=== PATIENT | female | born 1970 | race African-American/Black ===

== ENCOUNTER 2017-01-21 01:58 | Emergency (ER) | payer OTHER, MEDICAID ==
[2017-01-21 02:11] VITALS: BMI 33.7
--- NOTE | 2017-01-21 02:33 | DR.GENAD ---
HPI - PCP Primary Care Physician: Paulo - HPI Comment HPI Comment: Pt c/o dizziness and just doesn't feel right. Patient has not taken her BP meds or any meds for that matter in 2 weeks. - Complaint/Symptoms Chief Complaint Doctors Comments: "Dizziness" Chief Complaint:: "I just feel like something is wrong. I feel really dizzy and just feel disoriented. It may be my Potassium because I ran out of my medication now for about a week now. I can't even lay down because my head spins." - Nurses notes reviewed Nurses Notes Review: Yes - Source History Provided: Patient - Mode of Arrival Mode of Arrival: Ambulatory - Timing Onset of Chief Complaint: 01/14/17 Came on: Gradually - Duration Duration: Since Onset - Severity Severity: Moderate PMH - PMH Past Medical History: Yes Past Medical History: Anxiety, Depression, Hypertension, Hypothyroidism Past Surgical History: Yes Surgical History: Hysterectomy, Ortho Surgery - Family History History of Family Medical Conditions: Yes Family Medical History: Diabetes Mellitus, Hypertension - Social History Does patient currently use any type of tobacco product: No Have you used tobacco products in the last 12 months: No Type of Tobacco Use: None Does any household member use tobacco: No Alcohol Use: None Do you use any recreational Drugs:: No Lives With: Family Lives Where: Home - infectious screening In the last 2 months have you had wt loss of >10#?: NO Have you had fever, night sweats or hemotysis?: No Have you traveled outside the country in the last 6 months?: No Isolation: Standard ROS - Review of Systems Constitutional: No Symptoms Reported Eyes: No Symptoms Reported ENTM: No Symptoms Reported Respiratoy: No Symptoms Reported Cardiovascular: No Symptoms Reported Gastrointestinal/Abdominal: No Symptoms Reported, Abdominal Pain Neurological: Anxiety, Dizziness Musculoskeletal: No Symptoms Reported Integumentary: No Symptoms Reported Hematologic/Lymphatic: No Symptoms Reported Endocrine: No Symptoms Reported Psychiatric: See HPI, Anxiety All Other Systems: Reviewed and Negative PE - Vital Signs Vitals: Temperature 97.6 F Pulse Rate [Standing] 62 Pulse Rate [Sitting] 82 Pulse Rate [Lying] 59 Pulse Rate 62 Respiratory Rate 18 Blood Pressure [Right Arm] 162/86 Blood Pressure [Standing] 152/91 Blood Pressure [Sitting] 144/89 Blood Pressure [Lying] 145/82 Blood Pressure 133/80 O2 Sat by Pulse Oximetry 99 - General Limitations: No Limitations General Appearance: Alert, In No Apparent Distress - Head Head Exam: Normal Inspection - ENT ENT Exam: Normal Exam, Normal Oropharynx, Normal External Ear Exam, Mucous Membranes Moist External Ear Exam: Normal External Inspection TM/Canal Exam: Bilateral Normal Nose Exam: Normal Nose Exam Mouth Exam: Normal Inspection Throat Exam: Normal Inspection - Neck Neck Exam: Normal Inspection, Full ROM, Trachea Midline - Chest Chest Inspection: Normal Inspection - Respiratory Respiratory Exam: Normal Lung Sounds Bilat Respiratory Exam: Bilateral Clear to Auscultation - Cardiovascular Cardiovascular Exam: Regular Rate, Normal Rhythm, Normal Heart Sounds - Abdominal Exam Abdominal Exam: Normal Inspection, Normal Bowel Sounds, Soft - Extremities Extremities Exam: Normal Inspection - Back Back Exam: Normal Inspection - Neurologic Neurological Exam: Alert, Oriented X3, CN II-XII Intact - Psychiatric Psychiatric Exam: Anxious - Skin Skin Exam: Warm, Dry, Intact, Normal Color MDM - Differential Diagnosis Differential Diagnosis: panic attack, anxiety attack, vertigo, sinusitis ROR - Labs Reviewed Result Diagrams: 01/21/17 02:37 01/21/17 02:37 Laboratory: WBC 8.3 X10^3/uL (3.6-10.0) 01/21/17 02:37 RBC 4.55 X10^6/uL (3.5-5.4) 01/21/17 02:37 Hgb 12.8 g/dL (12.0-16.0) 01/21/17 02:37 Hct 38.1 % (36.0-47.0) 01/21/17 02:37 MCV 83.8 fL (80.0-100.0) 01/21/17 02:37 MCH 28.1 pg (27.0-34.0) 01/21/17 02:37 MCHC 33.5 g/dL (33.0-35.0) 01/21/17 02:37 RDW 13.1 % (11.6-16.5) 01/21/17 02:37 Plt Count 378 X10^3/uL (150.0-450.0) 01/21/17 02:37 MPV 7.4 fL (7.4-11.0) 01/21/17 02:37 Neut % 50.0 % (42.0-75.0) 01/21/17 02:37 Lymph % 43.5 % (21.0-51.0) 01/21/17 02:37 [place] % 5.6 % (0.0-13.0) 01/21/17 02:37 Eos % 0.3 % (0.9-2.9) L 01/21/17 02:37 Baso % 0.6 % (0.2-1.0) 01/21/17 02:37 Neut # 4.1 x10^3/uL (2.2-4.8) 01/21/17 02:37 Lymph # 3.6 X10^3/uL (1.3-2.9) H 01/21/17 02:37 [place] # 0.5 x10^3/uL (0.3-0.8) 01/21/17 02:37 Eos # 0.0 x10^3/uL (0.0-0.2) 01/21/17 02:37 Baso # 0.0 X10^3/uL (0.0-0.1) 01/21/17 02:37 Absolute Nucleated RBC 0.0 /100WBC 01/21/17 02:37 Sodium 143 mmol/L (136-145) 01/21/17 02:37 Corrected Sodium TNP 01/21/17 02:37 Potassium 3.3 mmol/L (3.5-5.1) L 01/21/17 02:37 Chloride 106 mmol/L (98-107) 01/21/17 02:37 Carbon Dioxide 30.4 mmol/L (21-32) 01/21/17 02:37 BUN 12 mg/dL (7-18) 01/21/17 02:37 Creatinine 0.98 mg/dL (0.55-1.02) 01/21/17 02:37 Est GFR (MDRD) Af Amer > 60 (>60) 01/21/17 02:37 Est GFR (MDRD) Non-Af > 60 (>60) 01/21/17 02:37 Glucose 103 mg/dL (65-99) H 01/21/17 02:37 Calcium 9.1 mg/dL (8.5-10.1) 01/21/17 02:37 Corrected Calcium TNP 01/21/17 02:37 Total Bilirubin 0.60 mg/dL (0.2-1.0) 01/21/17 02:37 AST 18 Units/L (15-37) 01/21/17 02:37 ALT 23 Units/L (12-78) 01/21/17 02:37 Alkaline Phosphatase 98 Units/L (46-116) 01/21/17 02:37 Total Protein 8.1 g/dL (6.4-8.2) 01/21/17 02:37 Albumin 4.1 g/dL (3.4-5.0) 01/21/17 02:37 Globulin 4.0 g/dL (2.5-4.5) 01/21/17 02:37 Albumin/Globulin Ratio 1.0 Ratio (1.1-2.1) L 01/21/17 02:37 Specimen Type Clean catch urine 01/21/17 02:28 Urine Color Yellow (YELLOW) 01/21/17 02:28 Urine Appearance Hazy (CLEAR) 01/21/17 02:28 Urine pH 6.5 (5.0 - 8.0) 01/21/17 02:28 Ur Specific [place] 1.010 (1.000-1.030) 01/21/17 02:28 Urine Protein 2+ (NEGATIVE) 01/21/17 02:28 Urine Glucose (UA) Negative (NEGATIVE) 01/21/17 02:28 Urine Ketones Negative (NEGATIVE) 01/21/17 02:28 Urine Occult Blood 2+ (NEGATIVE) 01/21/17 02:28 Urine Nitrite Negative (NEGATIVE) 01/21/17 02:28 Urine Bilirubin Negative (NEGATIVE) 01/21/17 02:28 Urine Urobilinogen 1+ (NORMAL) 01/21/17 02:28 Ur Leukocyte Esterase 3+ (NEGATIVE) 01/21/17 02:28 Urine RBC 5-10 /HPF (NEGATIVE) 01/21/17 02:28 Urine WBC 8-12 /HPF (NEGATIVE) 01/21/17 02:28 Ur Squamous Epith Cells Moderate /HPF (NEGATIVE) 01/21/17 02:28 Urine Bacteria Trace /HPF (NEGATIVE) 01/21/17 02:28 Urine Mucus Moderate /HPF (NEGATIVE) 01/21/17 02:28 Ur Culture Indicated? Yes/culture set up 01/21/17 02:28 - Diagnosis Discharge Problem: Cystitis, Dizziness, Noncompliance, Hypokalemia UTI (urinary tract infection) Qualifiers: Urinary tract infection type: acute cystitis Hematuria presence: with hematuria Qualified Code(s): N30.01 - Acute cystitis with hematuria Hypertension Qualifiers: Hypertension type: essential hypertension Qualified Code(s): I10 - Essential ( primary) hypertension - Discharge Plan Disposition: HOME, SELF-CARE Condition: Stable Prescriptions: Sulfamethoxazole-Trimethoprim [BACTRIM DS TAB 800/160 MG *] 1 tab PO BID #20 tab - Follow ups/Referrals Follow ups/Referrals: JASON SAHU [Primary Care Provider] - 3 days - Instructions Instructions: Urinary Tract Infection, Adult
[2017-01-21 02:37] LABS: BILIRUBIN,URINE NEGATIVE (NEGATIVE); BLOOD/HEMOGLOBIN,URINE 2+ (NEGATIVE); GLUCOSE, URINE NEGATIVE (NEGATIVE); KETONES,URINE NEGATIVE (NEGATIVE); LEUKOCYTE ESTERASE ,URINE 3+ (NEGATIVE); NITRITES,URINE NEGATIVE (NEGATIVE); PH,URINE 6.5 (5.0 - 8.0); PROTEIN,URINE 2+ (NEGATIVE); UROBILINOGEN,URINE 1+ (NORMAL)
[2017-01-21 02:49] LABS: APPEARANCE,URINE HAZY (CLEAR); BACTERIA,URINE TRACE /HPF (NEGATIVE); COLOR,URINE YELLOW (YELLOW); SQUAMOUS EPITHELIAL CELL,UR MODERATE /HPF (NEGATIVE)
[2017-01-21 02:50] LABS: MUCUS,URINE MODERATE /HPF (NEGATIVE)
[2017-01-21 02:51] LABS: BASOPHILS % (AUTO) 0.6 % (0.2-1.0); EOSINOPHILS % (AUTO) 0.3 % (0.9-2.9); HEMATOCRIT 38.1 % (36.0-47.0); HEMOGLOBIN 12.8 g/dL (12.0-16.0); LYMPHOCYTES # (AUTO) 3.6 X10^3/uL (1.3-2.9); LYMPHOCYTES % (AUTO) 43.5 % (21.0-51.0); MEAN CORPUSCULAR HEMOGLOBIN 28.1 pg (27.0-34.0); MEAN CORPUSCULAR HGB CONC 33.5 g/dL (33.0-35.0); MEAN CORPUSCULAR VOLUME 83.8 fL (80.0-100.0); MEAN PLATELET VOLUME 7.4 fL (7.4-11.0); MONOCYTES # (AUTO) 0.5 x10^3/uL (0.3-0.8); MONOCYTES % (AUTO) 5.6 % (0.0-13.0); NEUTROPHILS # (AUTO) 4.1 x10^3/uL (2.2-4.8); PLATELET COUNT 378 X10^3/uL (150.0-450.0); RED BLOOD COUNT 4.55 X10^6/uL (3.5-5.4); RED CELL DISTRIBUTION WIDTH 13.1 % (11.6-16.5); WHITE BLOOD COUNT 8.3 X10^3/uL (3.6-10.0)
[2017-01-21 02:53] VITALS: BP 145/82
[2017-01-21 02:59] LABS: ALANINE AMINOTRANSFERASE 23 Units/L (12-78); ALBUMIN 4.1 g/dL (3.4-5.0); ALKALINE PHOSPHATASE 98 Units/L (46-116); ASPARTATE AMINO TRANSFERASE 18 Units/L (15-37); BLOOD UREA NITROGEN 12 mg/dL (7-18); CALCIUM 9.1 mg/dL (8.5-10.1); CARBON DIOXIDE 30.4 mmol/L (21-32); CHLORIDE 106 mmol/L (98-107); CREATININE 0.98 mg/dL (0.55-1.02); GLUCOSE 103 mg/dL (65-99); SODIUM 143 mmol/L (136-145); TOTAL PROTEIN 8.1 g/dL (6.4-8.2); eGFR BLACK RACES > 60 (>60); eGFR NON BLACK RACES > 60 (>60)
[2017-01-21] MEDS ORDERED: CATAPRES TAB 0.1 MG ONE (03:07)
[2017-01-21] MEDS ORDERED: K-DUR TAB 20 MEQ PO STA (03:14)
[2017-01-21] MEDS ORDERED: BACTRIM DS TAB PO ONE ×2 (03:19→03:20)
[2017-01-21] MEDS ORDERED: K-DUR TAB 20 MEQ PO ONE (03:20)
== END 2017-01-21 03:23 | disposition home or self-care (01) ==
LOC: ER 01:58
DX: N30.90 Cystitis, unspecified without hematuria (principal); N30.01 Acute cystitis with hematuria; R42 Dizziness and giddiness; E87.6 Hypokalemia; I10 Essential (primary) hypertension; Z91.14 Patient's other noncompliance with medication regimen
CPT/HCPCS: 36415; 80053; 81001; 85025; 87086; 99282; 99283

== ENCOUNTER 2017-02-18 18:12 | Emergency (ER) | payer OTHER, MEDICAID ==
[2017-02-18 18:40] VITALS: BP 105/71; BMI 33.0
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
[2017-02-18] MEDS ORDERED: DEMEROL INJ IM ONE (18:50)
[2017-02-18 19:08] LABS: BASOPHILS % (AUTO) 0.5 % (0.2-1.0); EOSINOPHILS % (AUTO) 0.1 % (0.9-2.9); HEMATOCRIT 36.3 % (36.0-47.0); HEMOGLOBIN 12.3 g/dL (12.0-16.0); LYMPHOCYTES # (AUTO) 2.2 X10^3/uL (1.3-2.9); LYMPHOCYTES % (AUTO) 32.2 % (21.0-51.0); MEAN CORPUSCULAR HEMOGLOBIN 28.3 pg (27.0-34.0); MEAN CORPUSCULAR HGB CONC 33.8 g/dL (33.0-35.0); MEAN CORPUSCULAR VOLUME 83.8 fL (80.0-100.0); MEAN PLATELET VOLUME 7.5 fL (7.4-11.0); MONOCYTES # (AUTO) 0.5 x10^3/uL (0.3-0.8); MONOCYTES % (AUTO) 6.8 % (0.0-13.0); NEUTROPHILS # (AUTO) 4.1 x10^3/uL (2.2-4.8); NEUTROPHILS % (AUTO) 60.4 % (42.0-75.0); PLATELET COUNT 345 X10^3/uL (150.0-450.0); RED BLOOD COUNT 4.33 X10^6/uL (3.5-5.4); WHITE BLOOD COUNT 6.9 X10^3/uL (3.6-10.0)
[2017-02-18 19:14] LABS: BLOOD UREA NITROGEN 13 mg/dL (7-18); CALCIUM 9.9 mg/dL (8.5-10.1); CARBON DIOXIDE 25.5 mmol/L (21-32); CHLORIDE 104 mmol/L (98-107); CREATININE 1.11 mg/dL (0.55-1.02); SODIUM 140 mmol/L (136-145); eGFR BLACK RACES > 60 (>60); eGFR NON BLACK RACES 56 (>60)
[2017-02-18] MEDS ORDERED: DEMEROL INJ ONE (19:14)
[2017-02-18 19:19] LABS: ALANINE AMINOTRANSFERASE 24 Units/L (12-78); ALBUMIN 3.7 g/dL (3.4-5.0); ALKALINE PHOSPHATASE 106 Units/L (46-116); ASPARTATE AMINO TRANSFERASE 15 Units/L (15-37); TOTAL PROTEIN 7.7 g/dL (6.4-8.2)
[2017-02-18 19:40] LABS: BILIRUBIN,URINE NEGATIVE (NEGATIVE); BLOOD/HEMOGLOBIN,URINE NEGATIVE (NEGATIVE); GLUCOSE, URINE NEGATIVE (NEGATIVE); KETONES,URINE NEGATIVE (NEGATIVE); LEUKOCYTE ESTERASE ,URINE 1+ (NEGATIVE); NITRITES,URINE NEGATIVE (NEGATIVE); PROTEIN,URINE NEGATIVE (NEGATIVE); UROBILINOGEN,URINE NORMAL (NORMAL)
[2017-02-18 19:49] LABS: APPEARANCE,URINE CLEAR (CLEAR); BACTERIA,URINE TRACE /HPF (NEGATIVE); COLOR,URINE YELLOW (YELLOW); RBC,URINE 0-3 /HPF (NEGATIVE); SQUAMOUS EPITHELIAL CELL,UR RARE /HPF (NEGATIVE)
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
[2017-02-18] MEDS ORDERED: MICRO K EXTEN CAP 10 MEQ PO ONE (20:23)
[2017-02-18] MEDS ORDERED: K-LYTE EFFERVESCENT ONE (20:23)
[2017-02-18] MEDS ORDERED: MICRO K EXTEN CAP 10 MEQ PO SCH (21:00)
[2017-02-18] MEDS ORDERED: K-LYTE EFFERVESCENT PO SCH (21:00)
== END 2017-02-18 22:06 | disposition home or self-care (01) ==
LOC: ER 18:31
DX: Z04.3 Encounter for examination and observation following other accident (principal); E87.6 Hypokalemia; V49.9XXA Car occupant (driver) (passenger) injured in unspecified traffic accident, initial encounter
CPT/HCPCS: 36415; 70450; 71250; 72125; 80053; 81001; 85025; 96372; 99283; J2175

== ENCOUNTER 2017-07-07 17:54 | Emergency (ER) | payer OTHER, MEDICAID ==
[2017-07-07 18:00] VITALS: BMI 34.8
[2017-07-07] MEDS ORDERED: NS 1000 ML 1,000 ML IV ONE (19:19)
[2017-07-07] MEDS ORDERED: NS 1000 ML 1,000 ML ONE (19:20)
--- NOTE | 2017-07-07 19:30 | DR.GENAD ---
HPI - PCP Primary Care Physician: dr boucher in [place] - Complaint/Symptoms Chief Complaint:: pt stated she has been dizzy and feeling light headed today. she stated last time she felt this way her potassium was low - Source History Provided: Patient - Mode of Arrival Mode of Arrival: Ambulatory - Timing Onset of Chief Complaint: 07/07/17 <BC CORNELIUS - Last Filed: 07/07/17 20:02> PMH - PMH Past Medical History: Yes Past Medical History: Anxiety, Depression, Hypertension, Hypothyroidism Past Surgical History: Yes Surgical History: Hysterectomy, Ortho Surgery - Family History History of Family Medical Conditions: Yes Family Medical History: Diabetes Mellitus, Hypertension - Social History Does patient currently use any type of tobacco product: No Have you used tobacco products in the last 12 months: No Type of Tobacco Use: None Does any household member use tobacco: No Alcohol Use: None Do you use any recreational Drugs:: No Lives With: Family Lives Where: Home - infectious screening In the last 2 months have you had wt loss of >10#?: NO Have you had fever, night sweats or hemotysis?: No Have you traveled outside the country in the last 6 months?: No Isolation: Standard <BC CORNELIUS - Last Filed: 07/07/17 20:02> - Vital Signs Vitals: Temperature 98.7 F Pulse Rate 60 Respiratory Rate 18 Blood Pressure [Right Arm] 162/86 Blood Pressure [Standing] 152/91 Blood Pressure [Sitting] 144/89 Blood Pressure [Lying] 145/82 Blood Pressure 143/74 O2 Sat by Pulse Oximetry 100 ROR - Labs Reviewed Result Diagrams: 07/07/17 20:00 07/07/17 20:00 <CARLA LAZO - Last Filed: 07/07/17 21:12> - Labs Reviewed Laboratory: WBC 6.5 X10^3/uL (3.6-10.0) 07/07/17 20:00 RBC 4.22 X10^6/uL (3.5-5.4) 07/07/17 20:00 Hgb 11.7 g/dL (12.0-16.0) L 07/07/17 20:00 Hct 35.2 % (36.0-47.0) L 07/07/17 20:00 MCV 83.5 fL (80.0-100.0) 07/07/17 20:00 MCH 27.8 pg (27.0-34.0) 07/07/17 20:00 MCHC 33.3 g/dL (33.0-35.0) 07/07/17 20:00 RDW 13.6 % (11.6-16.5) 07/07/17 20:00 Plt Count 332 X10^3/uL (150.0-450.0) 07/07/17 20:00 MPV 7.5 fL (7.4-11.0) 07/07/17 20:00 Neut % 49.5 % (42.0-75.0) 07/07/17 20:00 Lymph % 42.0 % (21.0-51.0) 07/07/17 20:00 [place] % 7.3 % (0.0-13.0) 07/07/17 20:00 Eos % 0.6 % (0.9-2.9) L 07/07/17 20:00 Baso % 0.6 % (0.2-1.0) 07/07/17 20:00 Neut # 3.2 x10^3/uL (2.2-4.8) 07/07/17 20:00 Lymph # 2.7 X10^3/uL (1.3-2.9) 07/07/17 20:00 [place] # 0.5 x10^3/uL (0.3-0.8) 07/07/17 20:00 Eos # 0.0 x10^3/uL (0.0-0.2) 07/07/17 20:00 Baso # 0.0 X10^3/uL (0.0-0.1) 07/07/17 20:00 Absolute Nucleated RBC 0.1 /100WBC 07/07/17 20:00 Sodium 142 mmol/L (136-145) 07/07/17 20:00 Corrected Sodium TNP 07/07/17 20:00 Potassium 3.5 mmol/L (3.5-5.1) 07/07/17 20:00 Chloride 106 mmol/L (98-107) 07/07/17 20:00 Carbon Dioxide 28.5 mmol/L (21-32) 02/01/18 20:00 BUN 12 mg/dL (7-18) 07/07/17 20:00 Creatinine 0.79 mg/dL (0.55-1.02) 07/07/17 20:00 Est GFR (MDRD) Af Amer > 60 (>60) 07/07/17 20:00 Est GFR (MDRD) Non-Af > 60 (>60) 07/07/17 20:00 Glucose 88 mg/dL (65-99) 07/07/17 20:00 Calcium 8.7 mg/dL (8.5-10.1) 07/07/17 20:00 Corrected Calcium TNP 07/07/17 20:00 Magnesium 1.7 mg/dL (1.7-2.9) 07/07/17 20:00 Total Bilirubin 0.30 mg/dL (0.2-1.0) 07/07/17 20:00 AST 22 Units/L (15-37) 07/07/17 20:00 ALT 23 Units/L (12-78) 07/07/17 20:00 Alkaline Phosphatase 94 Units/L (46-116) 07/07/17 20:00 Total Protein 7.6 g/dL (6.4-8.2) 07/07/17 20:00 Albumin 3.6 g/dL (3.4-5.0) 07/07/17 20:00 Globulin 4.0 g/dL (2.5-4.5) 07/07/17 20:00 Albumin/Globulin Ratio 0.9 Ratio (1.1-2.1) L 07/07/17 20:00 Specimen Type Clean catch urine 07/07/17 19:19 Urine Color Yellow (YELLOW) 07/07/17 19:19 Urine Appearance Clear (CLEAR) 07/07/17 19:19 Urine pH 6.5 (5.0 - 8.0) 07/07/17 19:19 Ur Specific [place] 1.010 (1.000-1.030) 07/07/17 19:19 Urine Protein Negative (NEGATIVE) 07/07/17 19:19 Urine Glucose (UA) Negative (NEGATIVE) 07/07/17 19:19 Urine Ketones Negative (NEGATIVE) 07/07/17 19:19 Urine Occult Blood 2+ (NEGATIVE) 07/07/17 19:19 Urine Nitrite Negative (NEGATIVE) 07/07/17 19:19 Urine Bilirubin Negative (NEGATIVE) 07/07/17 19:19 Urine Urobilinogen Normal (NORMAL) 07/07/17 19:19 Ur Leukocyte Esterase 2+ (NEGATIVE) 07/07/17 19:19 Urine RBC 0-2 /HPF (NEGATIVE) 07/07/17 19:19 Urine WBC 0-5 /HPF (NEGATIVE) 07/07/17 19:19 Ur Squamous Epith Cells Negative /HPF (NEGATIVE) 07/07/17 19:19 Urine Bacteria Trace /HPF (NEGATIVE) 07/07/17 19:19 Ur Culture Indicated? No/not indicated 07/07/17 19:19 Influenza Type A (PCR) Negative (NEGATIVE) 07/07/17 19:32 Influenza Type B (PCR) Negative (NEGATIVE) 07/07/17 19:32 <BC CORNELIUS - Last Filed: 07/07/17 20:02> <CARLA LAZO - Last Filed: 07/07/17 21:12> - Discharge Plan Condition: Stable Prescriptions: Meclizine HCl [ANTIVERT 25 MG *] 25 mg PO TID PRN #30 tab PRN Reason: Dizziness Meloxicam [Mobic Tab 15 mg] 15 mg PO DAILY #30 tab - Follow ups/Referrals Follow ups/Referrals: NFD,None [Primary Care Provider] - 3 days - Instructions Instructions: Dizziness, [id number], Vertigo, [id number], Osteoarthritis Additional Instructions: RETURN TO ED IF WORSE.
[2017-07-07 19:42] LABS: BILIRUBIN,URINE NEGATIVE (NEGATIVE); BLOOD/HEMOGLOBIN,URINE 2+ (NEGATIVE); GLUCOSE, URINE NEGATIVE (NEGATIVE); KETONES,URINE NEGATIVE (NEGATIVE); LEUKOCYTE ESTERASE ,URINE 2+ (NEGATIVE); NITRITES,URINE NEGATIVE (NEGATIVE); PH,URINE 6.5 (5.0 - 8.0); PROTEIN,URINE NEGATIVE (NEGATIVE); UROBILINOGEN,URINE NORMAL (NORMAL)
[2017-07-07 19:49] LABS: APPEARANCE,URINE CLEAR (CLEAR); COLOR,URINE YELLOW (YELLOW)
[2017-07-07 19:50] LABS: BACTERIA,URINE TRACE /HPF (NEGATIVE); RBC,URINE 0-2 /HPF (NEGATIVE); SQUAMOUS EPITHELIAL CELL,UR NEGATIVE /HPF (NEGATIVE)
[2017-07-07 20:08] LABS: BASOPHILS % (AUTO) 0.6 % (0.2-1.0); EOSINOPHILS % (AUTO) 0.6 % (0.9-2.9); HEMATOCRIT 35.2 % (36.0-47.0); HEMOGLOBIN 11.7 g/dL (12.0-16.0); LYMPHOCYTES # (AUTO) 2.7 X10^3/uL (1.3-2.9); MEAN CORPUSCULAR HEMOGLOBIN 27.8 pg (27.0-34.0); MEAN CORPUSCULAR HGB CONC 33.3 g/dL (33.0-35.0); MEAN CORPUSCULAR VOLUME 83.5 fL (80.0-100.0); MEAN PLATELET VOLUME 7.5 fL (7.4-11.0); MONOCYTES # (AUTO) 0.5 x10^3/uL (0.3-0.8); MONOCYTES % (AUTO) 7.3 % (0.0-13.0); NEUTROPHILS # (AUTO) 3.2 x10^3/uL (2.2-4.8); NEUTROPHILS % (AUTO) 49.5 % (42.0-75.0); PLATELET COUNT 332 X10^3/uL (150.0-450.0); RED BLOOD COUNT 4.22 X10^6/uL (3.5-5.4); RED CELL DISTRIBUTION WIDTH 13.6 % (11.6-16.5); WHITE BLOOD COUNT 6.5 X10^3/uL (3.6-10.0)
[2017-07-07 20:22] LABS: ALANINE AMINOTRANSFERASE 23 Units/L (12-78); ALBUMIN 3.6 g/dL (3.4-5.0); ALKALINE PHOSPHATASE 94 Units/L (46-116); ASPARTATE AMINO TRANSFERASE 22 Units/L (15-37); BLOOD UREA NITROGEN 12 mg/dL (7-18); CALCIUM 8.7 mg/dL (8.5-10.1); CARBON DIOXIDE 28.5 mmol/L (21-32); CHLORIDE 106 mmol/L (98-107); CREATININE 0.79 mg/dL (0.55-1.02); MAGNESIUM 1.7 mg/dL (1.7-2.9); SODIUM 142 mmol/L (136-145); TOTAL PROTEIN 7.6 g/dL (6.4-8.2); eGFR BLACK RACES > 60 (>60); eGFR NON BLACK RACES > 60 (>60)
[2017-07-07] MEDS ORDERED: ANTIVERT TAB 25 MG PO ONE (21:12)
[2017-07-07] MEDS ORDERED: ANTIVERT TAB 25 MG ONE (21:13)
[2017-07-07 21:22] VITALS: BP 136/70
== END 2017-07-07 21:22 | disposition home or self-care (01) ==
LOC: ER 18:04
DX: M19.90 Unspecified osteoarthritis, unspecified site (principal); R42 Dizziness and giddiness
CPT/HCPCS: 36415; 80053; 81001; 83735; 85025; 87502; 96365; 99282; 99283; A4222

== ENCOUNTER 2017-09-18 11:04 | Emergency (ER) | payer OTHER, MEDICAID ==
[2017-09-18 11:15] VITALS: BP 141/63; BMI 34.3
--- NOTE | 2017-09-18 11:18 | DR.GENAD ---
HPI - PCP Primary Care Physician: DR. HENDRICKS - HPI Comment HPI Comment: GETTING WORSE. MEDS TRIED AT HOME DID NOT HELP. - Complaint/Symptoms Chief Complaint Doctors Comments: FEVER, COUGH AND CONGESTION TIMES ONE DAY. Chief Complaint:: PATIENT STATED THAT SHE HAS BEEN COUGHING AND HAVING FEVER. SHE STATED THAT LAST WEEK. SHE STATED TAHT SHE WENT OUTSIDE AND GOT WET AND NOW SHE IS SO SICK. - Nurses notes reviewed Nurses Notes Review: Yes - Source History Provided: Patient, EMS - Mode of Arrival Mode of Arrival: EMS - Timing Onset of Chief Complaint: 09/11/17 Came on: Gradually - Duration Duration: Constant Duration: Days - Severity Severity: Moderate PMH - PMH Past Medical History: Yes Past Medical History: Anxiety, Depression, Hypertension, Hypothyroidism Past Surgical History: Yes Surgical History: Hysterectomy, Ortho Surgery - Family History History of Family Medical Conditions: Yes Family Medical History: Diabetes Mellitus, Hypertension - Social History Does patient currently use any type of tobacco product: No Have you used tobacco products in the last 12 months: No Type of Tobacco Use: None Does any household member use tobacco: No Alcohol Use: None Do you use any recreational Drugs:: No Lives With: Family Lives Where: Home - infectious screening In the last 2 months have you had wt loss of >10#?: NO Have you had fever, night sweats or hemotysis?: No Have you traveled outside the country in the last 6 months?: No Isolation: Standard ROS - Review of Systems Constitutional: Fever, Weakness, Fatigue Eyes: No Symptoms Reported ENTM: Nose Discharge, Nose Congestion. negative: Ear Pain Respiratoy: Productive Cough, Short of Breath Cardiovascular: No Symptoms Reported Gastrointestinal/Abdominal: No Symptoms Reported Genitourinary: No Symptoms Reported Neurological: No Symptoms Reported Musculoskeletal: No Symptoms Reported Integumentary: No Symptoms Reported Hematologic/Lymphatic: No Symptoms Reported Endocrine: No Symptoms Reported All Other Systems: Reviewed and Negative PE - Vital Signs Vitals: Temperature 99.6 F Pulse Rate 85 Respiratory Rate 20 Blood Pressure [Left Arm] 136/70 Blood Pressure [Right Arm] 162/86 Blood Pressure [Standing] 152/91 Blood Pressure [Sitting] 144/89 Blood Pressure [Lying] 145/82 Blood Pressure 141/63 O2 Sat by Pulse Oximetry 98 - General Limitations: No Limitations General Appearance: Alert - Head Head Exam: Normal Inspection - Eyes Eye exam: Normal Appearance - ENT ENT Exam: Normal External Ear Exam External Ear Exam: Normal External Inspection TM/Canal Exam: Bilateral Normal Nose Exam: Normal Nose Exam Mouth Exam: Normal Inspection Throat Exam: Normal Inspection - Neck Neck Exam: Normal Inspection - Chest Chest Inspection: Symmetric Chest Wall Rise - Respiratory Respiratory Exam: Normal Lung Sounds Bilat Respiratory Exam: Bilateral Clear to Auscultation - Cardiovascular Cardiovascular Exam: Regular Rate, Normal Rhythm, Normal Heart Sounds - Abdominal Exam Abdominal Exam: Normal Bowel Sounds, Soft. negative: Tenderness - Extremities Extremities Exam: Normal Inspection - Back Back Exam: Normal Inspection - Neurologic Neurological Exam: Oriented X3 - Psychiatric Psychiatric Exam: Normal Affect, Normal Mood - Skin Skin Exam: Normal Color MDM - Differential Diagnosis Differential Diagnosis: PNEUMONIA, BRONCHITIS Course - Treatment Treatment: SEE ORDERS. - Education/Counseling Education/Counseling: Patient, Education Educated On: Diagnosis, Needs for Follow Up ROR - Labs Reviewed Laboratory Results Reviewed?: Yes Result Diagrams: 09/18/17 11:38 09/18/17 11:38 Laboratory: WBC 9.1 X10^3/uL (3.6-10.0) 09/18/17 11:38 RBC 4.31 X10^6/uL (3.5-5.4) 09/18/17 11:38 Hgb 12.2 g/dL (12.0-16.0) 09/18/17 11:38 Hct 36.0 % (36.0-47.0) 09/18/17 11:38 MCV 83.5 fL (80.0-100.0) 09/18/17 11:38 MCH 28.4 pg (27.0-34.0) 09/18/17 11:38 MCHC 34.0 g/dL (33.0-35.0) 09/18/17 11:38 RDW 13.8 % (11.6-16.5) 09/18/17 11:38 Plt Count 291 X10^3/uL (150.0-450.0) 09/18/17 11:38 MPV 7.7 fL (7.4-11.0) 09/18/17 11:38 Neut % (Auto) 78.0 % (42.0-75.0) H 09/18/17 11:38 Lymph % (Auto) 17.1 % (21.0-51.0) L 09/18/17 11:38 [place] % (Auto) 4.6 % (0.0-13.0) 09/18/17 11:38 Eos % (Auto) 0.0 % (0.9-2.9) L 09/18/17 11:38 Baso % (Auto) 0.3 % (0.2-1.0) 09/18/17 11:38 Neut # (Auto) 7.1 x10^3/uL (2.2-4.8) H 09/18/17 11:38 Lymph # (Auto) 1.6 X10^3/uL (1.3-2.9) 09/18/17 11:38 [place] # (Auto) 0.4 x10^3/uL (0.3-0.8) 09/18/17 11:38 Eos # (Auto) 0.0 x10^3/uL (0.0-0.2) 09/18/17 11:38 Baso # (Auto) 0.0 X10^3/uL (0.0-0.1) 09/18/17 11:38 Absolute Nucleated RBC 0.0 /100WBC 09/18/17 11:38 Sodium 137 mmol/L (136-145) 09/18/17 11:38 Corrected Sodium TNP 09/18/17 11:38 Potassium 3.3 mmol/L (3.5-5.1) L 09/18/17 11:38 Chloride 99 mmol/L (98-107) 09/18/17 11:38 Carbon Dioxide 29.2 mmol/L (21-32) 09/18/17 11:38 BUN 10 mg/dL (7-18) 09/18/17 11:38 Creatinine 1.06 mg/dL (0.55-1.02) H 09/18/17 11:38 Est GFR (MDRD) Af Amer > 60 (>60) 09/18/17 11:38 Est GFR (MDRD) Non-Af 59 (>60) 09/18/17 11:38 Glucose 99 mg/dL (65-99) 09/18/17 11:38 Lactic Acid 1.2 mmol/L (0.4-2.0) 09/18/17 11:38 Calcium 9.1 mg/dL (8.5-10.1) 09/18/17 11:38 Corrected Calcium TNP 09/18/17 11:38 Total Bilirubin 0.40 mg/dL (0.2-1.0) 09/18/17 11:38 AST 24 Units/L (15-37) 09/18/17 11:38 ALT 46 Units/L (12-78) 09/18/17 11:38 Alkaline Phosphatase 119 Units/L (46-116) H 09/18/17 11:38 C-Reactive Protein 68.50 mg/L (0-3.0) H 09/18/17 11:38 Total Protein 9.0 g/dL (6.4-8.2) H 09/18/17 11:38 Albumin 3.9 g/dL (3.4-5.0) 09/18/17 11:38 Globulin 5.1 g/dL (2.5-4.5) H 09/18/17 11:38 Albumin/Globulin Ratio 0.8 Ratio (1.1-2.1) L 09/18/17 11:38 S. pyogenes (TEM-PCR) Not detected (NOT DETECT) 09/18/17 13:20 - XRAY XRAY Interpreted by: Radiologist XRAY Findings: REPORT DISCUSS WITH PATIENT. - Diagnosis Discharge Problem: Bronchitis, Hypokalemia - Discharge Plan Disposition: 01 HOME, SELF-CARE Condition: Stable Prescriptions: Amoxicillin [Amoxil 875 mg] 875 mg PO BID #20 tab Benzonatate [TESSALON PERLES *] 200 mg PO TID PRN #30 cap PRN Reason: Cough Ibuprofen [MOTRIN TAB 600 MG *] 600 mg PO TID PRN #20 tab PRN Reason: Pain/Inflammation - Follow ups/Referrals Follow ups/Referrals: MDMisc [Primary Care Provider] - 2 days - Instructions Instructions: Acute Bronchitis, Adult, [id number] Additional Instructions: RETURN TO ED IF WORSE.
[2017-09-18 11:53] LABS: BASOPHILS % (AUTO) 0.3 % (0.2-1.0); HEMOGLOBIN 12.2 g/dL (12.0-16.0); LYMPHOCYTES # (AUTO) 1.6 X10^3/uL (1.3-2.9); LYMPHOCYTES % (AUTO) 17.1 % (21.0-51.0); MEAN CORPUSCULAR HEMOGLOBIN 28.4 pg (27.0-34.0); MEAN CORPUSCULAR VOLUME 83.5 fL (80.0-100.0); MEAN PLATELET VOLUME 7.7 fL (7.4-11.0); MONOCYTES # (AUTO) 0.4 x10^3/uL (0.3-0.8); MONOCYTES % (AUTO) 4.6 % (0.0-13.0); NEUTROPHILS # (AUTO) 7.1 x10^3/uL (2.2-4.8); PLATELET COUNT 291 X10^3/uL (150.0-450.0); RED BLOOD COUNT 4.31 X10^6/uL (3.5-5.4); RED CELL DISTRIBUTION WIDTH 13.8 % (11.6-16.5); WHITE BLOOD COUNT 9.1 X10^3/uL (3.6-10.0)
[2017-09-18 12:06] LABS: ALANINE AMINOTRANSFERASE 46 Units/L (12-78); ALBUMIN 3.9 g/dL (3.4-5.0); ALKALINE PHOSPHATASE 119 Units/L (46-116); ASPARTATE AMINO TRANSFERASE 24 Units/L (15-37); BLOOD UREA NITROGEN 10 mg/dL (7-18); CALCIUM 9.1 mg/dL (8.5-10.1); CARBON DIOXIDE 29.2 mmol/L (21-32); CHLORIDE 99 mmol/L (98-107); CREATININE 1.06 mg/dL (0.55-1.02); SODIUM 137 mmol/L (136-145); eGFR BLACK RACES > 60 (>60); eGFR NON BLACK RACES 59 (>60)
[2017-09-18 12:09] LABS: LACTIC ACID 1.2 mmol/L (0.4-2.0)
--- NOTE | 2017-09-18 12:38 | RAD ---
Examination: Portable AP chest History: Cough and fever Comparison reference 03/08/2016 Findings: Continued normal heart size with clear lungs and pleural spaces. Impression: No change; no acute findings. Reported By:
[2017-09-18] MEDS ORDERED: TORADOL 30 MG VIAL IVP ONE (12:45)
[2017-09-18] MEDS ORDERED: DUONEB 0.5 MG/3 MG NEB ONE (12:45)
[2017-09-18] MEDS ORDERED: ROCEPHIN 1 GM IV PREMIX 1 GM/50 ML IV.SOLN. IV ONE (12:45)
[2017-09-18] MEDS ORDERED: K-LYTE EFFERVESCENT PO ONE (12:50)
[2017-09-18] MEDS ORDERED: K-LYTE EFFERVESCENT ONE (13:01)
[2017-09-18] MEDS ORDERED: TORADOL 30 MG VIAL ONE (13:01)
[2017-09-18] MEDS ORDERED: NS 100 ML IV 100 ML IV ONE (13:01)
[2017-09-18] MEDS ORDERED: ROCEPHIN VIAL 1 GM ONE (13:02)
[2017-09-18] MEDS ORDERED: DUONEB 0.5 MG/3 MG ONE (13:14)
== END 2017-09-18 13:45 | disposition home or self-care (01) ==
LOC: ER 11:09
DX: J40 Bronchitis, not specified as acute or chronic (principal); E87.6 Hypokalemia
CPT/HCPCS: 36415; 71045; 80053; 83605; 85025; 86140; 87651; 94640; 96365; 96374; 96375; 99282; 99283; A4222; J0696; J1885; J7620

== ENCOUNTER 2017-10-15 10:42 | Emergency (ER) | payer OTHER, MEDICAID ==
[2017-10-15 10:46] VITALS: BP 134/73; BMI 35.2
--- NOTE | 2017-10-15 11:22 | DR.GENAD ---
HPI - PCP Primary Care Physician: DR. GONGORA - Complaint/Symptoms Chief Complaint Doctors Comments: Patient is complaining of dizziness and problems with her balance worst when she is standing and changing prosition for months getting worst recently. States she has been on antivert but has been out of it for a while. states she has been going to the emergency room several times for this problem and they tell her she has vertigo. States she saw Dr. Parker 06 August 2017 for same problems but she cannot make a followup appointment because the doctor is [place] of the [place]. She denies any recent trauma. states he is having left hip pain and she has had surgery on both hips in the past and she is wondering if the left one is coming aloose. She denies dysuria , hematuria, cold, cough, nausea or vomiting. States she takes a lot of medicines at home but she does not know the name of anything except the antivert and she did not bring any of her medicines. states she was taking Mobic for arthritis but she ran out and her doctor is [place] of the [place]. Chief Complaint:: PT IS HAVING DIZZY SPELLS AND VERTIGO AND THIS HAS BEEN GOING ON FOR MONTHS OFF AND ON - Nurses notes reviewed Nurses Notes Review: Yes - Source History Provided: Patient - Mode of Arrival Mode of Arrival: Ambulatory - Timing Onset of Chief Complaint: 08/04/17 Came on: Gradually - Duration Duration: Intermittent How lon Duration: Weeks - Location Location: dizziness - Severity Severity: Mild - Modifying Factors Worsens:: movement, standing Improves:: nothing PMH - PMH Past Medical History: Yes Past Medical History: Anxiety, Depression, Hypertension, Hypothyroidism Past Surgical History: Yes Surgical History: Hysterectomy, Ortho Surgery - Family History History of Family Medical Conditions: Yes Family Medical History: Diabetes Mellitus, Hypertension - Social History Does patient currently use any type of tobacco product: No Have you used tobacco products in the last 12 months: No Type of Tobacco Use: None Does any household member use tobacco: No Alcohol Use: Rarely Do you use any recreational Drugs:: No Lives With: Family Lives Where: Home - infectious screening In the last 2 months have you had wt loss of >10#?: NO Have you had fever, night sweats or hemotysis?: No Have you traveled outside the country in the last 6 months?: No Isolation: Standard ROS - Review of Systems Constitutional: No Symptoms Reported. negative: See HPI, Chills, Diaphoresis, Fever, Malaise, Weakness, Irritable, Fatigue, Loss of Appetite, Other Eyes: No Symptoms Reported. negative: See HPI, Eye Pain, Blurred Vision, Tearing, Discharge, Photophobia, Diplopia, Other ENTM: Nose Discharge, Nose Congestion. negative: No Symptoms Reported, See HPI , Ear Pain, Ear Discharge, Pulling on Ears, Hearing Loss, Nose Pain, Epistaxis, Mouth Pain, Mouth Swelling, Loose Teeth, Drooling, Throat Pain, Throat Swelling , Ear Foreign Body Respiratoy: No Symptoms Reported. negative: See HPI, Productive Cough, Non- Productive Cough, Moist Cough, Dry Cough, Hacking Cough, Barking Cough, Brassy Cough, Orthopnea, Short of Breath, Stridor, Wheezing, Hemoptysis, Other Cardiovascular: No Symptoms Reported. negative: See HPI, Chest Pain, Edema, Palpitations, Syncope, Cyanosis, Skin Mottling, Other Gastrointestinal/Abdominal: No Symptoms Reported. negative: See HPI, Abdominal Pain, Constipation, Diarrhea, Nausea, Vomiting, Food Intolerance, Other Genitourinary: No Symptoms Reported, Frequency. negative: See HPI, Discharge, Dysuria, Hematuria, Pain, Bleeding, Other Neurological: No Symptoms Reported, Anxiety, Headache, Dizziness Musculoskeletal: No Symptoms Reported. negative: See HPI, Back Pain, Gout, Joint Pain, Joint Swelling, Muscle Pain, Muscle Stiffness, Neck Pain, Right, Left, Neck, Chest wall, Rib(s), Back, Shoulder, Arm, Elbow, Forearm, Wrist, Hand , Pelvis, Hip, Leg, Knee, Ankle, Foot, Other Integumentary: No Symptoms Reported. negative: See HPI, Change in Color, Change in Hair/Nails, Dryness, Lesions, Lumps, Rash, Itching, Wound, Bruises, Juandice, Other Hematologic/Lymphatic: No Symptoms Reported Endocrine: No Symptoms Reported. negative: See HPI, Excessive Sweating, Flushing, Intolerance to Cold, Intolerance to Heat, Increased Hunger, Increased Thirst, Increased Urine, Unexplained Weight Gain, Unexplained Weight Loss, Failure to Thrive, Decreased Appetite, Other Psychiatric: No Symptoms Reported PE - Vital Signs Vitals: Temperature 97.0 F Pulse Rate 89 Respiratory Rate 20 Blood Pressure [Left Arm] 136/70 Blood Pressure [Right Arm] 162/86 Blood Pressure [Standing] 152/91 Blood Pressure [Sitting] 144/89 Blood Pressure [Lying] 145/82 Blood Pressure 134/73 O2 Sat by Pulse Oximetry 100 - General Limitations: No Limitations General Appearance: Alert, In No Apparent Distress - Head Head Exam: Normal Inspection, Atraumatic, Normocephalic - Eyes Eye exam: Normal Appearance, PERRL, EOMI. negative: Scleral Icterus, Conjunctival Injection, Nystagmus, Miosis, Mydrasis, Periorbital Swelling, Periorbital Tenderness, Other - ENT ENT Exam: Normal Exam, Normal Oropharynx, Normal External Ear Exam, Mucous Membranes Moist, TM's Normal Bilaterally External Ear Exam: Normal External Inspection. negative: Auricular Hematoma, Auricular Trauma, Mastoid Tenderness, Pain with Movement, External Tenderness, Periauricular Adenopathy, Other TM/Canal Exam: Bilateral Normal Nose Exam: Normal Nose Exam Mouth Exam: Normal Inspection Throat Exam: Normal Inspection - Neck Neck Exam: Normal Inspection, Full ROM, Trachea Midline. negative: Tenderness, Meningismus, Lymphadenopathy, Thyromegaly, Other - Chest Chest Inspection: Normal Inspection, Symmetric Chest Wall Rise - Respiratory Respiratory Exam: Normal Lung Sounds Bilat Respiratory Exam: Bilateral Clear to Auscultation - Cardiovascular Cardiovascular Exam: Regular Rate, Normal Rhythm, Normal Heart Sounds - Abdominal Exam Abdominal Exam: Normal Inspection, Normal Bowel Sounds, Soft Abdominal Tenderness: negative: RUQ, RLQ, LUQ, LLQ, Epigastrium, Suprapubic, Diffuse, Mild, Moderate, Severe, Other - Extremities Extremities Exam: Normal Inspection, Full ROM, Normal Capillary Refill. negative: Tenderness, Edema, Joint Swelling, Calf Tenderness, Other - Back Back Exam: Normal Inspection, Full ROM - Neurologic Neurological Exam: Alert, Oriented X3, CN II-XII Intact, Normal Gait, Reflexes Normal - Psychiatric Psychiatric Exam: Normal Affect, Normal Mood - Skin Skin Exam: Warm, Dry, Intact, Normal Color ROR - Labs Reviewed Laboratory Results Reviewed?: Yes (all x-ray results were reviewed and discussed with patient) - XRAY XRAY Interpreted by: Radiologist (CT head: No acute intracranial process can be identified) XRAY Findings: left hip: Stable appearance of left hip arthroplasty; no interval change o - Diagnosis Discharge Problem: Vertigo, Left hip pain Sinusitis Qualifiers: Sinusitis location: maxillary Chronicity: chronic Qualified Code(s): J32.0 - Chronic maxillary sinusitis - Discharge Plan Disposition: HOME, SELF-CARE Condition: Stable Prescriptions: Cetirizine HCl [Zyrtec Tab 10 mg] 10 mg PO DAILY #30 tab Meclizine HCl [Antivert Tab 25 mg] 25 mg PO BID PRN #60 tab PRN Reason: Dizziness Meloxicam [Mobic Tab 15 mg] 15 mg PO DAILY #30 tab - Follow ups/Referrals Follow ups/Referrals: Devika MARTINEZ [Primary Care Provider] - 3 days DENISE BARON [STAFF PHYSICIAN] - 3 days - Instructions Instructions: Vertigo, [id number], Musculoskeletal Pain, Dizziness, Easy-to- Read, Allergies, Adult
--- NOTE | 2017-10-15 12:32 | RAD ---
Examination: Left hip, three views History: Dizzy spells and vertigo Comparison reference 10/27/2015 Findings: Arthroplasty components remain anatomically related without evidence for dislocation, loose stacey, infection or periprosthetic fracture. One of the surgical screws penetrates the iliopectineal l ine as before. No periarticular soft tissue abnormality is noted. Impression: Stable appearance of left hip arthroplasty; no interval change or acute process demonstra charlie. Reported By:
--- NOTE | 2017-10-15 12:33 | CT ---
HISTORY: Dizzy spells vertigo Study: CT brain without contrast Comparison: Technique: Multiple axial images of the brain were obtained from the skull base to the vertex without administra tion of IV contrast. Findings: No acute intraparenchymal hemorrhage or mass can be identified. No extra-axial fluid collections are seen. No alteration in the attenuation of the brain parenchyma can be identified to suggest acute o r subacute ischemic change. The ventricular system is symmetric and nondilated. The extracranial st ructures are grossly unremarkable. IMPRESSION: 1. No acute intracranial process can be identified. Reported By:
[2017-10-15] MEDS ORDERED: ANTIVERT TAB 25 MG PO ONE (12:38)
[2017-10-15] MEDS ORDERED: ANTIVERT TAB 25 MG ONE (12:49)
== END 2017-10-15 12:50 | disposition home or self-care (01) ==
LOC: ER 10:51
DX: R42 Dizziness and giddiness (principal); J32.0 Chronic maxillary sinusitis; Z96.641 Presence of right artificial hip joint; Z96.642 Presence of left artificial hip joint
CPT/HCPCS: 70450; 73501; 99282